=== PATIENT | female | born 1980 | race Caucasian/White ===

== ENCOUNTER 2016-05-29 13:30 | Emergency (ER) | payer SELFPAY ==
--- NOTE | 2016-05-29 14:50 | DIAGNOSTIC IMAGING REPORT ---
PROCEDURE: XR CHEST 1 VIEW INDICATION: SHORTNESS OF BREATH TECHNIQUE: Portable AP view 01:45 p.m. COMPARISON: Chest 02/14/2015 and 12/30/2010 FINDINGS: Lungs are clear. Heart and mediastinum are normal. Thorax is normal. IMPRESSION: 1. Negative chest.
--- NOTE | 2016-05-29 16:55 | ED ORDER SUMMARY ---
..... Patient: KATE TANNER OrderSheet [facility] VisitID: [id number] [place] [address] 36y, F Registration Date/Time: 05/29/2016 ORDER SHEET Weight: 74.8 kg (stated) Allergies: Ibuprofen GENERAL ORDERS: Chest 1V Urgent (13:37 05/29/2016 Nikkie Sena) (Ack 13:40 Pedro) (13:55 Pedro) MEDICATION ORDERS: Albuterol Neb Tx 3 unit doses (NOW) (13:38 05/29/2016 Nikkie Sena) (13:49 KWilliams R.N.) IV FLUIDS: IV NS : initial bolus none -, then 1000 mL/hr for X1 (NOW) (13:36 05/29/2016 Nikkie Sena) (13:49 KWilliams R.N.) Solu-MEDROL IV 125 mg (NOW) (13:36 05/29/2016 Nikkie Sena) (13:50 KWilliams R.N.) Magnesium Sulfate IV 2 gm/50mL (HIGH ALERT MEDICATION, NOW) (14:05 05/29/2016 Nikkie Sena) (14:10 KWilliams R.N.) ORDER SHEET NOTES: This document has not been locked and should not be saved in the medical record.
--- NOTE | 2016-05-29 16:55 | ED CLINICAL REPORT ---
Clinical Report - Physicians/Mid Levels [facility] [address] [place] [address] 05/29/2016 13:30 Patient: KATE TANNER *This is a preliminary document and is subject to change Time Seen: 13:36; initial patient contact. Arrived- By private vehicle. Historian- patient. HISTORY OF PRESENT ILLNESS Chief Complaint: DYSPNEA, WHEEZING and HISTORY OF ASTHMA. This started today and is still present and worsening. It was gradual in onset and has been constant. The dyspnea is described as severe. She has had dyspnea at rest. The patient has had a cough. No sputum production, orthopnea or chest pain or discomfort. See nurses notes for current asthma threapy. Asthma triggers: unknown. Takes asthma medications. Similar symptoms previously: Many times. Recent medical care: Not recently seen/assessed. REVIEW OF SYSTEMS No nasal discharge, sinus drainage, fever, chills or palpitations. No calf pain, nausea, pedal edema or vomiting. All systems otherwise negative, except as recorded above. PAST HISTORY Asthma. SOCIAL HISTORY Never smoker. ADDITIONAL NOTES The nursing notes have been reviewed with agreement regarding the chief complaint, PMH and patient medications and allergies. PHYSICAL EXAM Vital Signs: 05/29/2016 13:23 BP: 195/122. HR: 164. RR: 35. O2 saturation: 89%. Have been reviewed. Hypertensive. Tachycardic. Tachypneic. Temperature normal. Oxygen saturation low. Appearance: Anxious. Patient in severe distress. Eyes: Eyes normal inspection. ENT: Pharynx normal. Neck: No JVD. CVS: Tachycardia. Heart sounds normal. Rhythm normal. Respiratory: Severe respiratory distress with accessory muscle use, retractions, anxiety, diaphoresis, tachypnea and hyperventilation. Unable to speak. Abdomen: Soft and nontender. Skin: No rash. Diaphoresis. Extremities: No calf tenderness. No lower extremity edema. Neuro: Oriented X 3. LABS, X-RAYS, AND EKG Chest X-ray: No acute disease. Normal lung markings present. Normal heart size. No infiltrate. Views: AP. The X-rays were independently viewed by me and interpreted contemporaneously by me. A comparison with prior films reveals that the findings are unchanged. Interpretation time: 16:17. Russel Miller Dr.
--- NOTE | 2016-05-29 16:55 | ED NURSING NOTES ---
Clinical Report - Nurses [facility] [address] [place] [address] 05/29/2016 13:30 Patient: KATE TANNER TRIAGE Triage time 1323. Acuity: LEVEL 2. Chief Complaint: "ASTHMA ATTACK". 13:23 05/29/16. Alert. --13:39 Dipika Ortega R.N. 13:23 05/29/16. BP: 195/122. HR: 164. RR: 35. O2 saturation: 89%. --13:39 Dipika Ortega R.N. Weight: 74.8 kg stated. Height/Length: 63 inches Per Patient. BMI: 29.2. --13:36 Dipika Ortega R.N. Medications ProAir HFA Inhalation. --13:40 Dipika Ortega R.N. Allergies Ibuprofen. --13:39 Dipika Ortega R.N. History Arrived by private vehicle, and accompanied by (sig other). Primary physician (unknown). ( Pt taken from lobby to room two prior to registration. Not speaking due to severity of shortness of breath. MD met at bedside upon arrival to room. Intibated approx 1 year ago for asthma exacerbation.). Onset. (unknown). --13:39 Dipika Ortega R.N. PROBLEMS: Asthma. --13:40 Dipika Ortega R.N. Interventions ID band on patient. To treatment room. --13:39 Dipika Ortega R.N. PHYSICAL ASSESSMENT 13:23. To room via wheelchair. GENERAL / NEURO / PSYCH: Appears anxious and in distress. RESPIRATORY: Severe respiratory distress. She is unable to speak. CVS: Cardiac rhythm: sinus tachycardia. SKIN: Skin is diaphoretic. --13:40 Dipika Ortega R.N. NURSING PROGRESS NOTES The plan of care for this patient has been created. Oxygen administered at 7 liters (oximask with neb tx). marketing support coordinator, pulse oximeter and NIBP monitor placed on patient. Patient gowned. Head of bed elevated. Bed placed in lowest position. Brakes of bed on. --13:41 Dipika Ortega R.N. 13:41 05/29/16. BP: 166/112. HR: 160. RR: 21. O2 saturation: 100%. --13:41 Dipika Ortega R.N. Overall patient status- she states feels the same. --13:41 Dipika Ortega R.N. ( RSI kit placed at bedside). --13:41 Dipika Ortega R.N. 13:24 05/29/2016 Albuterol Neb TX Nebulizer 3 unit dose given. Given by the respiratory therapist. Allergies verified and confirmed 5 rights. --13:49 Dipika Ortega R.N. 13:26 05/29/2016 Site #1 started via IV in the right antecubital space with an 18g angiocath, with aseptic technique and good blood return; one attempt. Blood drawn: rainbow set. Labeled in the presence of the patient and sent to the lab. Saline lock flushed with 10 mL saline. --13:49 Dipika Ortega R.N. 13:27 05/29/2016 SOLU-MEDROL (MethylPREDNISolone Sodium Succ) IVP 125 mg given over 2 minute(s) via site #1. Allergies verified and confirmed 5 rights. IV patency established. IV site checked: no pain, redness, or swelling. IV flushed thoroughly pre- and post-medication administration. IVP given by RN. --13:50 Dipika Ortega R.N. 13:44 05/29/2016 Started bag #1 1000 mL IV Fluids IV NS (Saline); at 999 mL/hr over 1 hour(s) via site #1. Allergies verified and confirmed 5 rights. IV patency established. IV site checked: no pain, redness, or swelling. IV flushed thoroughly pre- and post-medication administration. Completed per protocol. --13:49 Dipika Ortega R.N. 13:50 05/29/16. BP: 160/124. HR: 163. O2 saturation: 100% on face mask at 7 liters/minute. --13:51 Dipika Ortega R.N. Cardiac rhythm: sinus tachycardia. --13:51 Dipika Ortega R.N. Overall patient status is improved- she states feels better. RESPIRATORY: Moderate respiratory distress present with accessory muscle use and hyperventilation. --13:52 Dipika Ortega R.N. 14:02 05/29/16. BP: 149/92. HR: 152. RR: 23. O2 saturation: 98%. --14:03 Dipika Ortega R.N. Cardiac rhythm: sinus tachycardia. --14:03 Dipika Ortega R.N. Cardiac rhythm: sinus tachycardia. --14:09 Dipika Ortega R.N. 14:09 05/29/16. BP: 136/82. HR: 150. RR: 22. O2 saturation: 97%. --14:09 Dipika Ortega R.N. 14:05/29/2016 Started 2 gm of Magnesium Sulfate (Magnesium Sulfate in D5W) Drip IV in bag #1 50 mL; at 25 mL/hr over 2 hour(s) via site #1 via IV pump. Allergies verified and confirmed 5 rights. IV patency established. IV site checked: no pain, redness, or swelling. IV flushed thoroughly pre- and post-medication administration. Completed per protocol. --14:10 Dipika Ortega R.N. Cardiac rhythm: sinus tachycardia. --14:48 Dipika Ortega R.N. 14:48 05/29/16. BP: 134/76. HR: 139. RR: 19. O2 saturation: 96%. --14:48 Dipika Ortega R.N. 15:53 05/29/16. BP: 117/76. HR: 128. RR: 19. O2 saturation: 96% on nasal cannula at 3 liters/minute. --15:54 Dipika Ortega R.N. Cardiac rhythm: sinus tachycardia. --15:54 Dipika Ortega R.N. DISPOSITION / DISCHARGE 17:37 05/29/16. Departure time: 1731. ( aware of discharge vs). Discharge instructions provided and reviewed with the patient and spouse and the patient left prior to discharge education being provided. Reviewed medication(s) side effects, precautions, dosing and course information. Prescription(s) given to the patient. Patient and spouse verbalized understanding. Written instructions provided in Armenian and Maldivian. The patient was discharged by the physician. She was discharged home and accompanied by spouse. She left the Emergency Department ambulatory and via private vehicle. Spouse driving. --17:37 Dipika Ortega R.N. 17:33 05/29/16. BP: 137/78. HR: 123. RR: 13. O2 saturation: 95% on room air. Temp: 98.1 F (oral). Pain level now 0/10. --17:37 Dipika Ortega R.N. Locked/Released at 06/14/2016 8:41 by Alice Gregg R.N.
--- NOTE | 2016-05-29 16:55 | ED CLINICAL REPORT ---
Clinical Report - Physicians/Mid Levels [facility] [address] [place] [address] 05/29/2016 13:30 Patient: KATE TANNER *This is a preliminary document and is subject to change Time Seen: 13:36; initial patient contact. Arrived- By private vehicle. Historian- patient. HISTORY OF PRESENT ILLNESS Chief Complaint: DYSPNEA, WHEEZING and HISTORY OF ASTHMA. This started today and is still present and worsening. It was gradual in onset and has been constant. The dyspnea is described as severe. She has had dyspnea at rest. The patient has had a cough. No sputum production, orthopnea or chest pain or discomfort. See nurses notes for current asthma threapy. Asthma triggers: unknown. Takes asthma medications. Similar symptoms previously: Many times. Recent medical care: Not recently seen/assessed. REVIEW OF SYSTEMS No nasal discharge, sinus drainage, fever, chills or palpitations. No calf pain, nausea, pedal edema or vomiting. All systems otherwise negative, except as recorded above. PAST HISTORY Asthma. SOCIAL HISTORY Never smoker. ADDITIONAL NOTES The nursing notes have been reviewed with agreement regarding the chief complaint, PMH and patient medications and allergies. PHYSICAL EXAM Vital Signs: 05/29/2016 13:23 BP: 195/122. HR: 164. RR: 35. O2 saturation: 89%. Have been reviewed. Hypertensive. Tachycardic. Tachypneic. Temperature normal. Oxygen saturation low. Appearance: Anxious. Patient in severe distress. Eyes: Eyes normal inspection. ENT: Pharynx normal. Neck: No JVD. CVS: Tachycardia. Heart sounds normal. Rhythm normal. Respiratory: Severe respiratory distress with accessory muscle use, retractions, anxiety, diaphoresis, tachypnea and hyperventilation. Unable to speak. Abdomen: Soft and nontender. Skin: No rash. Diaphoresis. Extremities: No calf tenderness. No lower extremity edema. Neuro: Oriented X 3. LABS, X-RAYS, AND EKG Chest X-ray: No acute disease. Normal lung markings present. Normal heart size. No infiltrate. Views: AP. The X-rays were independently viewed by me and interpreted contemporaneously by me. A comparison with prior films reveals that the findings are unchanged. Interpretation time: 16:17. Russel Miller Dr.
--- NOTE | 2016-05-29 16:55 | ED ORDER SUMMARY ---
..... Patient: KATE TANNER OrderSheet [facility] VisitID: [id number] [place] [address] 36y, F Registration Date/Time: 05/29/2016 ORDER SHEET Weight: 74.8 kg (stated) Allergies: Ibuprofen GENERAL ORDERS: Chest 1V Urgent (13:37 05/29/2016 Nikkie Sena) (Ack 13:40 Pedro) (13:55 Pedro) MEDICATION ORDERS: Albuterol Neb Tx 3 unit doses (NOW) (13:38 05/29/2016 Nikkie Sena) (13:49 KWilliams R.N.) IV FLUIDS: IV NS : initial bolus none -, then 1000 mL/hr for X1 (NOW) (13:36 05/29/2016 Nikkie Sena) (13:49 KWilliams R.N.) Solu-MEDROL IV 125 mg (NOW) (13:36 05/29/2016 Nikkie Sena) (13:50 KWilliams R.N.) Magnesium Sulfate IV 2 gm/50mL (HIGH ALERT MEDICATION, NOW) (14:05 05/29/2016 Nikkie Sena) (14:10 KWilliams R.N.) ORDER SHEET NOTES: This document has not been locked and should not be saved in the medical record.
--- NOTE | 2016-06-14 08:41 | ED MED RECONCILIATION SUMMARY ---
Patient: KATE TANNER Medication Reconciliation Report [facility] VisitID: [id number] [address] [place] [address] 36y, F Registration Date/Time: 05/29/2016 Weight: 74.8 kg Height/Length: 63 in. BMI: 29.2 ALLERGIES: Ibuprofen The patient's Home Medications are listed below: CONTINUE TAKING THE FOLLOWING MEDICATIONS: ProAir HFA Inhalation The source(s) of the original Home Medication information: Not obtained. The following Medications were given to the patient in the Emergency Department: IV NS IV Fluids bolus 0, then 999 mL/hr, administered: 05/29/2016 1:44:00 PM Albuterol [Neb Tx] Neb TX 3 unit dose, administered: 05/29/2016 1:24:00 PM SOLU-MEDROL [IVP] IVP 125 mg, administered: 05/29/2016 1:27:00 PM Magnesium Sulfate [IV Drip] Drip IV bolus 0, then 2 gm 25 mL/hr, administered: 05/29/2016 2:05:00 PM The following Medications were prescribed to the patient: Prednisone 20 mg: take 2 orally every day for 4 days. Dispense sufficient quantity.(Start on 05/30/16) -- Russel Miller Dr.
--- NOTE | 2016-06-14 08:41 | ED MAR SUMMARY ---
..... Medication Administration Record [facility] [address] [place] [address] Patient: KATE TANNER Visit ID: [id number] 36y, F Weight: 74.8 kg Height/Length: 63 in BMI: 29.2 ALLERGIES: Ibuprofen Given 13:24 05/29/2016 Dpiika Ortega R.N. Medication Administered: ALBUTEROL [NEB TX], Dose: 3 unit dose Nebulizer Neb TX. Medication Ordered: Albuterol Neb Tx 3 unit doses (NOW). Given 13:27 05/29/2016 Dipika Ortega R.N. Medication Administered: SOLU-MEDROL [IVP] (METHYLPREDNISOLONE SODIUM SUCC), Dose: 125 mg IVP over 2 minute(s), Site: #1 right AC. Medication Ordered: Solu-MEDROL IV 125 mg (NOW). Start 13:44 05/29/2016 Dipika Ortega R.N. Medication Administered: IV NS (SALINE), Dose: IV Fluids over 1 hour(s), Rate: 999 mL/hr, Dispensed: 1000 mL bag, Site: #1 right AC. Medication Ordered: IV NS : initial bolus none -, then 1000 mL/hr for X1 (NOW). Start 14:05 05/29/2016 Dipika Ortega R.N. Medication Administered: MAGNESIUM SULFATE [IV DRIP] (MAGNESIUM SULFATE IN D5W), Dose: 2 gm Drip IV over 2 hour(s), Rate: 25 mL/hr, Dispensed: 50 mL bag, Site: #1 right AC. Medication Ordered: Magnesium Sulfate IV 2 gm/50mL (HIGH ALERT MEDICATION, NOW).
--- NOTE | 2016-06-14 08:41 | ED MED RECONCILIATION SUMMARY ---
Patient: KATE TANNER Medication Reconciliation Report [facility] VisitID: [id number] [address] [place] [address] 36y, F Registration Date/Time: 05/29/2016 Weight: 74.8 kg Height/Length: 63 in. BMI: 29.2 ALLERGIES: Ibuprofen The patient's Home Medications are listed below: CONTINUE TAKING THE FOLLOWING MEDICATIONS: ProAir HFA Inhalation The source(s) of the original Home Medication information: Not obtained. The following Medications were given to the patient in the Emergency Department: IV NS IV Fluids bolus 0, then 999 mL/hr, administered: 05/29/2016 1:44:00 PM Albuterol [Neb Tx] Neb TX 3 unit dose, administered: 05/29/2016 1:24:00 PM SOLU-MEDROL [IVP] IVP 125 mg, administered: 05/29/2016 1:27:00 PM Magnesium Sulfate [IV Drip] Drip IV bolus 0, then 2 gm 25 mL/hr, administered: 05/29/2016 2:05:00 PM The following Medications were prescribed to the patient: Prednisone 20 mg: take 2 orally every day for 4 days. Dispense sufficient quantity.(Start on 05/30/16) -- Russel Miller Dr.
--- NOTE | 2016-06-14 08:41 | ED MAR SUMMARY ---
..... Medication Administration Record [facility] [address] [place] [address] Patient: KATE TANNER Visit ID: [id number] 36y, F Weight: 74.8 kg Height/Length: 63 in BMI: 29.2 ALLERGIES: Ibuprofen Given 13:24 05/29/2016 Dipika Ortega R.N. Medication Administered: ALBUTEROL [NEB TX], Dose: 3 unit dose Nebulizer Neb TX. Medication Ordered: Albuterol Neb Tx 3 unit doses (NOW). Given 13:27 05/29/2016 Dipika Ortega R.N. Medication Administered: SOLU-MEDROL [IVP] (METHYLPREDNISOLONE SODIUM SUCC), Dose: 125 mg IVP over 2 minute(s), Site: #1 right AC. Medication Ordered: Solu-MEDROL IV 125 mg (NOW). Start 13:44 05/29/2016 Dipika Ortega R.N. Medication Administered: IV NS (SALINE), Dose: IV Fluids over 1 hour(s), Rate: 999 mL/hr, Dispensed: 1000 mL bag, Site: #1 right AC. Medication Ordered: IV NS : initial bolus none -, then 1000 mL/hr for X1 (NOW). Start 14:05 05/29/2016 Dipika Ortega R.N. Medication Administered: MAGNESIUM SULFATE [IV DRIP] (MAGNESIUM SULFATE IN D5W), Dose: 2 gm Drip IV over 2 hour(s), Rate: 25 mL/hr, Dispensed: 50 mL bag, Site: #1 right AC. Medication Ordered: Magnesium Sulfate IV 2 gm/50mL (HIGH ALERT MEDICATION, NOW).
--- NOTE | 2016-06-14 08:41 | ED DISCHARGE INSTRUCTIONS ---
Patient: KATE TANNER General Instructions [facility] VisitID: [id number] [place] [address] 36y, F Registration Date/Time: 05/29/2016 Moderate persistent asthma with an acute exacerbation, status asthmaticus and hypoxemia. No pneumonia or acute respiratory failure. INSTRUCTIONS Your Current Medications: CONTINUE TAKING THE FOLLOWING MEDICATIONS: ProAir HFA Inhalation. Prescription Medications: Prednisone 20 mg: take 2 orally every day for 4 days. Dispense sufficient quantity. (Start on 05/30/16) Follow-up: Follow up with your doctor in two days even if well. Call for an appointment. Screening today revealed the patient's blood pressure to be in the normal range. ADDITIONAL INFORMATION Asthma [Adult] Asthma is a disease where the small air passages within the lung go into spasm and restrict the flow of air. Inflammation and swelling of the airways cause further restriction. During an acute asthma attack, these factors cause difficulty breathing, wheezing, cough and chest tightness. An asthma attack can be triggered by many things. Common triggers include the common cold, bronchitis, pneumonia, irritants such as smoke or pullutants in the air, emotional upset and heavy exercise. Inmany adults with asthma, allergies todust, mold, pollen and animal dander can cause an asthma attack. Skipping doses of daily asthma medicine can also bring on an asthma attack. Asthma can be controlled with proper medicines and decreased exposure to known allergens. Home Care: Take prescribed medicine exactly at the times advised. If you have a hand-held inhaler or aerosol breathing medicine, do not use it more than once every four hours, unless told to do so. (If you need this medicine more than every four hours, you may need to return to the Emergency Room.) If prescribed an antibiotic or prednisone, take all of the medicine even if you are feeling better after a few days. Do not smoke. Avoid being exposed to the smoke of others. Some persons with asthma have worsening of their symptoms when they take aspirin and non-steroidal medicines like ibuprofen (Motrin, Advil) and naproxen (Aleve, Naprosyn). Talk to your doctor if you think this may apply to you. Acetaminophen (Tylenol)should be safe to use. Follow Up with your doctor, or as advised by our staff. Always bring all of your current medicines with you for your doctor to see. If you do not already have one, talk to your doctor about developing a personalized "Asthma Action Plan." [NOTE: A pneumococcal vaccine and yearly flu shot (every fall) are recommended. Ask your doctor about this.] Get Prompt Medical Attention if any of the following occur: Increased wheezing or shortness of breath Need to use your inhalers more often than usual without relief Fever of 100.4F (38C) or higher, or as directed by your healthcare provider Coughing up lots of dark-colored or bloody sputum (mucus) Chest pain with each breath You do not start to improve within 24 hours Call 911 If Any Of The Following Occur : Trouble walking or talking because of shortness of breath If you use a peak flow meter andyou are still in the red zone (less than 50 percent) 15 minutes after using inhaler medication Lips or fingernails turning vazquez or blue You have been given the following additional information: Asthma, Acute (Adult) (Electronically signed by Russel Miller Dr. 05/29/2016 17:02)
== END 2016-05-29 17:31 | disposition home or self-care (01) ==
LOC: ED SRH 13:30
DX: J45.42 Moderate persistent asthma with status asthmaticus (principal); R09.02 Hypoxemia

== ENCOUNTER 2016-09-22 01:45 | Inpatient (IN) | payer SELFPAY ==
[~2016-09-22] VITALS: Ht 152.4 cm; Wt 70.9 kg
--- NOTE | 2016-09-22 03:50 | ED ORDER SUMMARY ---
..... Patient: KATE TANNER OrderSheet [facility] VisitID: [id number] [place] [address] 36y, F Registration Date/Time: 09/22/2016 ORDER SHEET Weight: 72.5 kg (stated) Allergies: Ibuprofen GENERAL ORDERS: Chest 1V Urgent (02:09/22/2016 Kamilla IVERSON) (Ack 2:28 CHagerty ER Ux Design Manager) (3:01 Kinza) Postal Support Employee (Continuous) (02:09/22/2016 Kamilla IVERSON) (Ack 2:31 JQuivey R.N.) (2:44 CFalkner R.N.) CBC w Diff Urgent (02:09/22/2016 Kamilla IVERSON) (Ack 2:28 Valeria ER Ux Design Manager) (2:41 CFalkner R.N.) BMP Urgent (02:09/22/2016 Kamilla IVERSON) (Ack 2:28 Valeria ER Ux Design Manager) (2:41 CFalkner R.N.) (Cancelled: Other3:01 Kamilla IVERSON) Oxygen (2 L/min) (NC) (02:25 09/22/2016 Kamilla IVERSON) (2:31 JQuivey R.N.) CMP Urgent (03:02 09/22/2016 Kamilla IVERSON) (Ack 3:04 CHagmarija ER Ux Design Manager) (3:05 CHagerty ER Ux Design Manager) Amylase Urgent (03:02 09/22/2016 Kamilla IVERSON) (Ack 3:04 CHagmarija ER Ux Design Manager) (3:05 CHagerty ER Ux Design Manager) Lipase Urgent (03:02 09/22/2016 Kamilla IVERSON) (Ack 3:04 CHagerty ER Ux Design Manager) (3:05 CHagerty ER Ux Design Manager) UA-Culture if indicated Urgent (03:02 09/22/2016 Kamilla IVERSON) (Ack 3:04 CHagmarija ER Ux Design Manager) (3:34 JQuivey R.N.) Urine Urgent (03:02 09/22/2016 Kamilla IVERSON) (Ack 3:04 CHagmarija ER Ux Design Manager) (3:34 JQuivey R.N.) Acetone, Serum Urgent (03:02 09/22/2016 Kamilla IVERSON) (Ack 3:04 CHagerty ER Ux Design Manager) (3:05 CHagerty ER Ux Design Manager) ABG (G) Urgent (03:02 09/22/2016 Kamilla IVERSON) (Ack 3:04 CHagmarija ER Ux Design Manager) (3:44 JQuivey R.N.) POC Glucose (Q 30 minutes) (03:14 09/22/2016 Kamilla IVERSON) (Ack 3:44 JQuivey R.N.) MEDICATION ORDERS: DuoNeb Neb Tx 1 unit dose (NOW) (01:55 09/22/2016 JQuivey R.N. per protocol) (1:56 JQuivey R.N.) Albuterol Neb Tx 1 unit dose (NOW) (02:24 09/22/2016 Kamilla IVERSON) (Ack 2:28 CHagerty ER Ux Design Manager) (2:32 JQuivey R.N.) IV FLUIDS: IV Saline Lock (02:25 09/22/2016 Kamilla IVERSON) (2:31 JQuivey R.N.) IV NS : initial bolus 1000 mL (1000 mL/hr), then 125 mL/hr for 4h (NOW); Urgent (03:02 09/22/2016 Kamilla IVERSON) (Ack 3:19 JQuivey R.N.) (3:34 JQuivey R.N.) Insulin Reg IV 5 units (HIGH ALERT MEDICATION, NOW) (03:14 09/22/2016 Kamilla IVERSON) (Ack 3:19 JQuivey R.N.) (3:34 JQuivey R.N.) Insulin Reg IV 5 units (NOW) (04:15 09/22/2016 JQuivey R.N. verbal order read back to Kamilla IVERSON) (Ack 4:16 JQuivey R.N.) (4:21 JQuivey R.N.) ORDER SHEET NOTES: [Electronically signed by Alok Alfaro R.N. (06:02 09/22/2016)] [Electronically signed by Fermín Ruiz MD (11:25 09/24/2016)] [Electronically locked/signed by Alok Alfaro R.N. (06:02 09/22/2016)]
--- NOTE | 2016-09-22 03:50 | ED CLINICAL REPORT ---
Clinical Report - Physicians/Mid Levels [facility] [address] [place] [address] 09/22/2016 1:45 Patient: KATE TANNER Time Seen: 01:54. Arrived- By ambulance. Historian- patient and EMS personnel. HISTORY OF PRESENT ILLNESS Chief Complaint: DYSPNEA and HISTORY OF ASTHMA. This started yesterday and is still present. It was abrupt in onset and has been constant. The dyspnea is severe. The patient has had wheezing and dyspnea on exertion. No calf pain or foot swelling. Similar symptoms previously: Several times. REVIEW OF SYSTEMS No chills, fever, sweats, calf pain or pedal edema. No palpitations, abdominal pain, constipation, diarrhea or nausea. No vomiting or urinary problems. She has had diabetic symptoms, including polydipsia and polyuria. No polyphagia, weight loss or fatigue. All systems otherwise negative, except as recorded above. PAST HISTORY Problems: Asthma. Diabetes Mellitus. Additional Surgeries: Sinus Surgery. Medications: MetFORMIN HCl Oral (Tablet 1000 mg) 1 tablet, 2x a day. Albuterol Sulfate Inhalation 2 puffs, PRN. Allergies: Ibuprofen. SOCIAL HISTORY Never smoker. No alcohol use or drug use. ADDITIONAL NOTES The nursing notes have been reviewed. PHYSICAL EXAM Vital Signs: 09/22/2016 01:46 BP: 141/62. HR: 144. RR: 22. O2 saturation: 99%. Pain level now: 0/10. Have been reviewed. Appearance: Alert. No acute distress. Eyes: Pupils equal, round and reactive to light. ENT: Pharynx normal. Neck: Normal inspection. No jugular venous distention. Neck supple. CVS: Normal heart rate and rhythm. Heart sounds normal. Respiratory: Retractions. Accessory muscle use. Prolonged expirations. Decreased air movement. Wheezing present. No rales or rhonchi. Abdomen: Soft and nontender. No organomegaly. Back: Normal inspection. No CVA tenderness. Skin: Skin warm and dry. Normal skin color. Normal skin turgor. Extremities: Extremities exhibit normal ROM. No calf tenderness. No lower extremity edema. Neuro: No motor deficit. No sensory deficit. LABS, X-RAYS, AND EKG Chest X-ray: No infiltrate. The X-rays were independently viewed by me. Laboratory Tests: UA-Culture if indicated: (PALAK: 09/22/2016 03:28) ( [facility] 09/22/2016 03:43) IP Test Result Flag Units (Reference) URINE COLOR YELLOW URINE APPEARANCE CLEAR URINE GLUCOSE 3+ (NEGATIVE) URINE BILIRUBIN NEGATIVE (NEGATIVE) URINE KETONE 1+ (NEGATIVE) URINE SPECIFIC GRAVITY <= 1.005 L (1.010-1.030) URINE PH 5.5 (5.0-8.0) URINE PROTEIN NEGATIVE (NEGATIVE) URINE UROBILINOGEN 0.2 EU/dL (0.2-1.0) URINE NITRITE NEGATIVE (NEGATIVE) URINE BLOOD 2+ (NEGATIVE) URINE LEUK ESTERASE NEGATIVE (NEGATIVE) Urine: (PALAK: 09/22/2016 03:28) ( [facility] 09/22/2016 03:43) Final results Test Result Flag Units (Reference) URINE NEGATIVE CBC w Diff: (PALAK: 09/22/2016 02:35) ( [facility] 09/22/2016 02:45) Final results Test Result Flag Units (Reference) WHITE BLOOD COUNT 9.2 K/uL (4.5-11.5) RED BLOOD COUNT 4.62 M/uL (4.00-5.20) HEMOGLOBIN 9.9 L gm/dL (12.0-16.0) HEMATOCRIT 31.7 L % (36.0-46.0) MEAN CELL VOLUME 69 L fL (80-100) MEAN CORPUSCULAR HGB 22 L pg (26-34) MEAN CORPUSCULAR HGB CONC 31 g/dL (31-37) RED CELL DISTRIBUTION WIDTH 14.5 % (11.6-14.8) PLATELET COUNT 218 K/uL (150-400) NEUTROPHIL % 76.7 H % (50-75) LYMPH % 16.8 L % (25-40) MONO % 4.6 % (3-14) EOSINOPHIL % 1.7 % (0-4) BASOPHIL % 0.2 % (0-2) CMP: (PALAK: 09/22/2016 02:35) ( MsgRcvd 09/22/2016 03:32) Final results Test Result Flag Units (Reference) GLUCOSE 583 *H mg/dL (70-110) CRITICAL RESULTS CALLEDCalled to DR. RUIZ 09/22/16 WITH CHEM 7Were 2 patient identifiers used? YWas the result read back? Y BUN 16 mg/dL (7-18) CREATININE 0.8 mg/dL (0.6-1.3) Estimated GFR >60 mL/min Estimated GFR- >60 mL/min Note: Persistent reduction over 3 months in eGFR<60 mL/min/1.73 m2 defines CKD. Patients with eGFR values>=60 mL/min/1.73 m2 may also have CKD if evidence ofpersistent proteinuria. Additional information may be foundat www.kidney.org. SODIUM 134 L mmol/L (136-145) POTASSIUM 3.3 L mmol/L (3.5-5.1) CHLORIDE 97 L mmol/L (98-107) CARBON DIOXIDE 22 mmol/L (21-32) CALCIUM 9.0 mg/dL (8.5-10.1) TOTAL PROTEIN 7.3 g/dL (6.4-8.2) ALBUMIN 3.4 g/dL (3.3-5.0) BILIRUBIN, TOTAL 0.2 mg/dL (0.0-1.0) ALKALINE PHOSPHATASE 145 H U/L (46-116) AST (SGOT) 11 L U/L (15-37) ALT (SGPT) 19 U/L (12-78) LIPASE 192 U/L (73-393) AMYLASE 55 U/L (25-115) ACETONE, SERUM QUALITATIVE POSITIVE (NEGATIVE) WEAK POSITIVE REACTION BMP: (PALAK: 09/22/2016 02:35) ( MsgRcvd 09/22/2016 03:02) Final results Test Result Flag Units (Reference) GLUCOSE 593 *H mg/dL (70-110) CRITICAL RESULTS CALLEDCalled to DR. RUIZ 09/22/16 0301Were 2 patient identifiers used? YWas the result read back? Y BUN 16 mg/dL (7-18) CREATININE 0.8 mg/dL (0.6-1.3) Estimated GFR >60 mL/min Estimated GFR- >60 mL/min Note: Persistent reduction over 3 months in eGFR<60 mL/min/1.73 m2 defines CKD. Patients with eGFR values>=60 mL/min/1.73 m2 may also have CKD if evidence ofpersistent proteinuria. Additional information may be foundat www.kidney.org. SODIUM 134 L mmol/L (136-145) POTASSIUM 3.2 L mmol/L (3.5-5.1) CHLORIDE 98 mmol/L (98-107) CARBON DIOXIDE 23 mmol/L (21-32) CALCIUM 8.9 mg/dL (8.5-10.1) ABG: (PALAK: 09/22/2016 03:02) ( MsgRcvd 09/22/2016 03:16) Final results Test Result Flag Units (Reference) FIO2 36 % (20-101) ABG MODE OF DELIVERY NC MODIFIED FELICITY TEST POSITIVE? YES LITERS PER MIN. 4 L/MIN (0-20) ABG PATIENT RESP RATE 20 /MIN ARTERIAL BLOOD GAS SITE LR ARTERIAL BLOOD GAS pH 7.42 (7.35-7.45) ABG PCO2 35.7 mmHg (35-45) ABG PO2 86.5 mmHg (80.0-100.0) ABG BASE EXCESS -1.3 H mmol/L (-6.0--6.0) ABG HCO3 23.0 mmol/L (20.0-26.0) ABG TCO2 24.1 mmol/L (24.0-30.0) ABG KcGbD6x 130.3 H mmHg (7.0-14.0) *NOTE: Normal rangeis based on aFIO2 of 21% ABG SAT O2 97.5 % (95.1-100.0) ABG TOTAL HEMOGLOBIN 10.0 L g/dL (12.0-16.0) ABG O2 HEMOGLOBIN 95.9 % (95.0-100.0) ABG CARBOXYHEMOGLOBIN 1.5 % (0.5-1.5) ABG METHEMOGLOBIN 0.1 L % (0.4-1.5) ABG RHEMOGLOBIN 2.5 % . PROGRESS AND PROCEDURES Discussed case with hospitalist, (Delonte). Reviewed test results and need for additional work-up. Agreed upon treatment plan, need for patient follow-up and decision to admit. Patient/family counseled. Old medical records reviewed. Disposition: Admitted. CLINICAL IMPRESSION Asthma. Diabetes with hyperglycemia. Hypoxia. ketotic hyperosmolar state. (Electronically signed by Fermín Ruiz MD 09/24/2016 11:25)
--- NOTE | 2016-09-22 03:50 | ED NURSING NOTES ---
Clinical Report - Nurses [facility] [place] [address] 09/22/2016 1:45 Patient: KATE TANNER TRIAGE Triage time 01:42. Acuity: LEVEL 2. Chief Complaint: SHORTNESS OF BREATH, DIFFICULTY BREATHING and "ASTHMA ATTACK". 01:53. Alert. SEPSIS SCREEN: Sepsis Screen. Negative (no infection suspected/documented). --01:53 Alok Alfaro R.N. 01:46 09/22/16. BP: 141/62. HR: 144. RR: 22. O2 saturation: 99% on non-rebreather. Temp: deferred. Pain level now: 0/10. --01:53 Alok Alfaro R.N. Weight: 72.5 kg stated. Height/Length: 63 inches Per Patient. BMI: 28.3. --01:52 Alok Alfaro R.N. Medications Albuterol Sulfate Inhalation 2 puffs, PRN. --01:51 Alok Alfaro R.N. MetFORMIN HCl Oral (Tablet 1000 mg) 1 tablet, 2x a day. --01:51 Alok Alfaro R.N. Allergies Ibuprofen. --01:51 Alok Alfaro R.N. Medication/allergy information source: the patient and patient's family. --01:53 Alok Alfaro R.N. History Arrived by EMS. Historian: EMS and patient. Accompanied by daughter. Primary physician (PERRY). This started last night. Treatment AUTOMOTIVE GLAZIER: EMS treatment AUTOMOTIVE GLAZIER verbally communicated. Oxygen administered by nonrebreather mask. Medications given- (125 mg SOLU-MEDROL). ( [facility] PAST MEDICAL HX: Immunizations: up-to-date. Last normal menstrual period now. SOCIAL HX: Never smoker. No alcohol use or drug use. No infectious disease exposure. ABUSE ASSESSMENT: No report of abuse. FALL RISK ASSESSMENT: Fall risk assessment completed. No fall risk identified. NUTRITIONAL RISK ASSESSMENT: The nutritional risk assessment revealed no deficiencies. FUNCTIONAL ASSESSMENT: Functional assessment: no impairments noted. LEARNING NEEDS ASSESSMENT: The learning needs assessment revealed no barriers. SKIN INTEGRITY ASSESSMENT: Skin integrity risk assessment completed. No skin integrity risk identified. --01:53 Alok Alfaro R.N. PROBLEMS: Asthma. Diabetes Mellitus. --01:52 Alok Alfaro R.N. ADDITIONAL SURGERIES: Sinus Surgery. --01:52 Alok Alfaro R.N. Interventions ID band on patient. To treatment room. --01:53 Alok Alfaro R.N. 01:33 09/22/2016 Site #1 started prior to arrival by EMS via IV in the left antecubital space with an 20g angiocath. --01:49 Alok Alfaro R.N. PHYSICAL ASSESSMENT 01:54. To room via wheelchair. GENERAL / NEURO / PSYCH: Alert. Oriented X 4. HEENT: Mucous membranes are pink. RESPIRATORY: Mild respiratory distress. The patient can speak a few words at a time. Wheezing present; wheezes audible without auscultation. SKIN: Skin is warm and dry. Normal skin turgor. --01:54 Alok Alfaro R.N. NURSING PROGRESS NOTES 01:43. Head of bed elevated. Two patient identifiers checked. Call light placed in reach. Bed placed in lowest position. Brakes of bed on. Patient ready for evaluation- chart flagged. --01:54 Alok Alfaro R.N. 01:44 RT with pt for eval and breathing treatment. --01:55 Alok Alfaro R.N. 01:44 09/22/2016 Duoneb (Ipratropium-Albuterol) Neb TX 1 unit dose given. Given by the respiratory therapist. Allergies verified and confirmed 5 rights. --01:56 Alok Alfaro R.N. 02:15 Following Duo-neb treatment - RT placed oxy-mask on pt. --02:16 Alok Alfaro R.N. 02:32 09/22/2016 Albuterol Neb TX 1 unit dose given. Given by the respiratory therapist. Allergies verified and confirmed 5 rights. --02:32 Alok Alfaro R.N. Patient ID band checked for patient name and birthdate: patient confirmed. Blood samples drawn from the right wrist by nurse per protocol ; labeled in presence of the patient and sent to lab: rainbow set. Two patient identifiers checked. Call light placed in reach. Side rails up x 1. Bed placed in lowest position. Brakes of bed on. --02:45 Suma Ortiz R.N. 02:40 RT placed pt on 02 4 lts NC. --03:33 Alok Alfaro R.N. 03:27 Patient to restroom to collect urine sample. --03:28 Alok Alfaro R.N. 03:29. Patient ID band checked for patient name and birthdate. Clean catch urine collected with return of yellow-colored clear urine; sample sent to lab for urinalysis and HCG. Specimen labeled in the presence of the patient. --03:31 Alok Alfaro R.N. 03:29 09/22/2016 Started bag #1 1000 mL IV Fluids IV NS (Saline); at 1000 mL/hr over 1 hour(s) via site #1 --03:34 Alok Alfaro R.N. 03:32 09/22/2016 Insulin REG IVP 5 unit given over 1 minute(s) via site #1. Allergies verified and confirmed 5 rights. IV patency established. IV site checked: no pain, redness, or swelling. IV flushed thoroughly pre- and post-medication administration (dose verified by Annemarie DEE). --03:34 Alok Alfaro R.N. 03:34 09/22/16. BP: 122/68. HR: 126. RR: 17. O2 saturation: 99% on nasal cannula at 4 liters/minute. --03:35 Alok Alfaro R.N. 03:35. Oxygen decreased to 2 liters. --03:35 Aolk Alfaro R.N. Finger stick glucose: >500; performed by tech; result shown to the ED physician and RN. ( @ 0402). --04:08 Tej Vanegas, MUKUL Tech1 04:21 09/22/2016 Insulin REG IVP 5 unit given over 1 minute(s) via site #1. Allergies verified and confirmed 5 rights. IV patency established. IV site checked: no pain, redness, or swelling. IV flushed thoroughly pre- and post-medication administration. --04:21 Alok Alfaro R.N. 04:37. The patient is sleeping. RESPIRATORY: No respiratory distress. SKIN: Skin is warm and dry. Skin color within normal limits. --04:37 Alok Alfaro R.N. 05:02. Finger stick glucose: 476 mg/dL; performed by tech; result shown to the RN. --05:02 Alok Alfaro R.N. 05:17 Dr. Martel with pt for exam. --05:17 Alok Alfaro R.N. 05:20 09/22/2016 IV Fluids IV NS Bag Change: bag #1 infused. Total amount infused: 1000. STARTED bag #2 at 125 mL/hr. IV patency established. IV site checked: no pain, redness, or swelling. IV flushed thoroughly. --05:21 Alok Alfaro R.N. DISPOSITION / DISCHARGE Condition at departure: improved and stable. FALL RISK ASSESSMENT: Fall risk assessment completed. No fall risk identified. --04:37 Alok Alfaro R.N. 04:36 09/22/16. BP: 124/65. HR: 120. RR: 18. O2 saturation: 96% on nasal cannula at 2 liters/minute. --04:37 Alok Alfaro R.N. 05:11. Report was given via a phone call. Report included patient's care, treatment, medications, reviewed medication reconcilliation, and condition (including any recent changes or anticipated changes). Report was acknowledged. (Wilton VAZQUEZcustomer care representative). --05:11 Alok Alfaro R.N. Admitted to Acute Care. Patient's personal items include, Other belongings; items were placed in belongings bag and transported with the patient. She did not have glasses, contacts, dentures or a hearing aid. --05:16 Alok Alfaro R.N. 05:14 09/22/16. BP: 101/53. HR: 112. RR: 17. O2 saturation: 97% on nasal cannula at 2 liters/minute. Pain level now: 0/10. --05:16 Alok Alfaro R.N. Departure time: 05:54. --05:54 Alok Alfaro R.N. Locked/Released at 09/22/2016 6:02 by Alok Alfaro R.N.
--- NOTE | 2016-09-22 03:50 | ED NURSING NOTES ---
Clinical Report - Nurses [facility] [place] [address] 09/22/2016 1:45 Patient: KATE TANNER TRIAGE Triage time 01:42. Acuity: LEVEL 2. Chief Complaint: SHORTNESS OF BREATH, DIFFICULTY BREATHING and "ASTHMA ATTACK". 01:53. Alert. SEPSIS SCREEN: Sepsis Screen. Negative (no infection suspected/documented). --01:53 lAok Alfaro R.N. 01:46 09/22/16. BP: 141/62. HR: 144. RR: 22. O2 saturation: 99% on non-rebreather. Temp: deferred. Pain level now: 0/10. --01:53 Alok Alfaro R.N. Weight: 72.5 kg stated. Height/Length: 63 inches Per Patient. BMI: 28.3. --01:52 Alok Alfaro R.N. Medications Albuterol Sulfate Inhalation 2 puffs, PRN. --01:51 Alok Alfaro R.N. MetFORMIN HCl Oral (Tablet 1000 mg) 1 tablet, 2x a day. --01:51 Alok Alfaro R.N. Allergies Ibuprofen. --01:51 Alok Alfaro R.N. Medication/allergy information source: the patient and patient's family. --01:53 Alok Alfaro R.N. History Arrived by EMS. Historian: EMS and patient. Accompanied by daughter. Primary physician (PERRY). This started last night. Treatment REPACKER: EMS treatment REPACKER verbally communicated. Oxygen administered by nonrebreather mask. Medications given- (125 mg SOLU-MEDROL). ( [facility] PAST MEDICAL HX: Immunizations: up-to-date. Last normal menstrual period now. SOCIAL HX: Never smoker. No alcohol use or drug use. No infectious disease exposure. ABUSE ASSESSMENT: No report of abuse. FALL RISK ASSESSMENT: Fall risk assessment completed. No fall risk identified. NUTRITIONAL RISK ASSESSMENT: The nutritional risk assessment revealed no deficiencies. FUNCTIONAL ASSESSMENT: Functional assessment: no impairments noted. LEARNING NEEDS ASSESSMENT: The learning needs assessment revealed no barriers. SKIN INTEGRITY ASSESSMENT: Skin integrity risk assessment completed. No skin integrity risk identified. --01:53 Alok Alfaro R.N. PROBLEMS: Asthma. Diabetes Mellitus. --01:52 Alok Alfaro R.N. ADDITIONAL SURGERIES: Sinus Surgery. --01:52 Alok Alfaro R.N. Interventions ID band on patient. To treatment room. --01:53 Alok Alfaro R.N. 01:33 09/22/2016 Site #1 started prior to arrival by EMS via IV in the left antecubital space with an 20g angiocath. --01:49 Alok Alfaro R.N. PHYSICAL ASSESSMENT 01:54. To room via wheelchair. GENERAL / NEURO / PSYCH: Alert. Oriented X 4. HEENT: Mucous membranes are pink. RESPIRATORY: Mild respiratory distress. The patient can speak a few words at a time. Wheezing present; wheezes audible without auscultation. SKIN: Skin is warm and dry. Normal skin turgor. --01:54 Alok Alfaro R.N. NURSING PROGRESS NOTES 01:43. Head of bed elevated. Two patient identifiers checked. Call light placed in reach. Bed placed in lowest position. Brakes of bed on. Patient ready for evaluation- chart flagged. --01:54 Alok Alfaro R.N. 01:44 RT with pt for eval and breathing treatment. --01:55 Alok Alfaro R.N. 01:44 09/22/2016 Duoneb (Ipratropium-Albuterol) Neb TX 1 unit dose given. Given by the respiratory therapist. Allergies verified and confirmed 5 rights. --01:56 Alok Alfaro R.N. 02:15 Following Duo-neb treatment - RT placed oxy-mask on pt. --02:16 Alok Alfaro R.N. 02:32 09/22/2016 Albuterol Neb TX 1 unit dose given. Given by the respiratory therapist. Allergies verified and confirmed 5 rights. --02:32 Alok Alfaro R.N. Patient ID band checked for patient name and birthdate: patient confirmed. Blood samples drawn from the right wrist by nurse per protocol ; labeled in presence of the patient and sent to lab: rainbow set. Two patient identifiers checked. Call light placed in reach. Side rails up x 1. Bed placed in lowest position. Brakes of bed on. --02:45 Suma Ortiz R.N. 02:40 RT placed pt on 02 4 lts NC. --03:33 Alok Alfaro R.N. 03:27 Patient to restroom to collect urine sample. --03:28 Alok Alfaro R.N. 03:29. Patient ID band checked for patient name and birthdate. Clean catch urine collected with return of yellow-colored clear urine; sample sent to lab for urinalysis and HCG. Specimen labeled in the presence of the patient. --03:31 Alok Alfaro R.N. 03:29 09/22/2016 Started bag #1 1000 mL IV Fluids IV NS (Saline); at 1000 mL/hr over 1 hour(s) via site #1 --03:34 Alok Alfaro R.N. 03:32 09/22/2016 Insulin REG IVP 5 unit given over 1 minute(s) via site #1. Allergies verified and confirmed 5 rights. IV patency established. IV site checked: no pain, redness, or swelling. IV flushed thoroughly pre- and post-medication administration (dose verified by Annemarie DEE). --03:34 Alok Alfaro R.N. 03:34 09/22/16. BP: 122/68. HR: 126. RR: 17. O2 saturation: 99% on nasal cannula at 4 liters/minute. --03:35 Alok Alfaro R.N. 03:35. Oxygen decreased to 2 liters. --03:35 Alok Alfaro R.N. Finger stick glucose: >500; performed by tech; result shown to the ED physician and RN. ( @ 0402). --04:08 Tej Vanegas, MUKUL Tech1 04:21 09/22/2016 Insulin REG IVP 5 unit given over 1 minute(s) via site #1. Allergies verified and confirmed 5 rights. IV patency established. IV site checked: no pain, redness, or swelling. IV flushed thoroughly pre- and post-medication administration. --04:21 Alok Alfaro R.N. 04:37. The patient is sleeping. RESPIRATORY: No respiratory distress. SKIN: Skin is warm and dry. Skin color within normal limits. --04:37 Alok Alfaro R.N. 05:02. Finger stick glucose: 476 mg/dL; performed by tech; result shown to the RN. --05:02 Alok Alfaro R.N. 05:17 Dr. Martel with pt for exam. --05:17 Alok Alfaro R.N. 05:20 09/22/2016 IV Fluids IV NS Bag Change: bag #1 infused. Total amount infused: 1000. STARTED bag #2 at 125 mL/hr. IV patency established. IV site checked: no pain, redness, or swelling. IV flushed thoroughly. --05:21 Alok Alfaro R.N. DISPOSITION / DISCHARGE Condition at departure: improved and stable. FALL RISK ASSESSMENT: Fall risk assessment completed. No fall risk identified. --04:37 Alok Alfaro R.N. 04:36 09/22/16. BP: 124/65. HR: 120. RR: 18. O2 saturation: 96% on nasal cannula at 2 liters/minute. --04:37 Alok Alfaro R.N. 05:11. Report was given via a phone call. Report included patient's care, treatment, medications, reviewed medication reconcilliation, and condition (including any recent changes or anticipated changes). Report was acknowledged. (Wilton VAZQUEZcaregiver services home). --05:11 Alok Alfaro R.N. Admitted to Acute Care. Patient's personal items include, Other belongings; items were placed in belongings bag and transported with the patient. She did not have glasses, contacts, dentures or a hearing aid. --05:16 Alok Alfaro R.N. 05:14 09/22/16. BP: 101/53. HR: 112. RR: 17. O2 saturation: 97% on nasal cannula at 2 liters/minute. Pain level now: 0/10. --05:16 Alok Alfaro R.N. Departure time: 05:54. --05:54 Alok Alfaro R.N. Locked/Released at 09/22/2016 6:02 by Alok Alfaro R.N.
--- NOTE | 2016-09-22 03:50 | ED ORDER SUMMARY ---
..... Patient: KATE TANNER OrderSheet [facility] VisitID: [id number] [place] [address] 36y, F Registration Date/Time: 09/22/2016 ORDER SHEET Weight: 72.5 kg (stated) Allergies: Ibuprofen GENERAL ORDERS: Chest 1V Urgent (02:09/22/2016 Kamilla IVERSON) (Ack 2:28 CHagerty ER [employer] Sales Consultant) (3:01 Kinza) Stitch Cleaner (Continuous) (02:09/22/2016 Kamilla IVERSON) (Ack 2:31 JQuivey R.N.) (2:44 CFalkner R.N.) CBC w Diff Urgent (02:09/22/2016 Kamilla IVERSON) (Ack 2:28 Valeria ER [employer] Sales Consultant) (2:41 CFalkner R.N.) BMP Urgent (02:09/22/2016 Kamilla IVERSON) (Ack 2:28 Valeria ER [employer] Sales Consultant) (2:41 CFalkner R.N.) (Cancelled: Other3:01 Kamilla IVERSON) Oxygen (2 L/min) (NC) (02:25 09/22/2016 Kamilla IVERSON) (2:31 JQuivey R.N.) CMP Urgent (03:02 09/22/2016 Kamilla IVERSON) (Ack 3:04 CHagmarija ER [employer] Sales Consultant) (3:05 CHagerty ER [employer] Sales Consultant) Amylase Urgent (03:02 09/22/2016 Kamilla IVERSON) (Ack 3:04 CHagmarija ER [employer] Sales Consultant) (3:05 CHagerty ER [employer] Sales Consultant) Lipase Urgent (03:02 09/22/2016 Kamilla IVERSON) (Ack 3:04 CHagerty ER [employer] Sales Consultant) (3:05 CHagerty ER [employer] Sales Consultant) UA-Culture if indicated Urgent (03:02 09/22/2016 Kamilla IVERSON) (Ack 3:04 CHagmarija ER [employer] Sales Consultant) (3:34 JQuivey R.N.) Urine Urgent (03:02 09/22/2016 Kamilla IVERSON) (Ack 3:04 CHagmarija ER [employer] Sales Consultant) (3:34 JQuivey R.N.) Acetone, Serum Urgent (03:02 09/22/2016 Kamilla IVERSON) (Ack 3:04 CHagerty ER [employer] Sales Consultant) (3:05 CHagerty ER [employer] Sales Consultant) ABG (G) Urgent (03:02 09/22/2016 Kamilla IVERSON) (Ack 3:04 CHagmarija ER [employer] Sales Consultant) (3:44 JQuivey R.N.) POC Glucose (Q 30 minutes) (03:14 09/22/2016 Kamilla IVERSON) (Ack 3:44 JQuivey R.N.) MEDICATION ORDERS: DuoNeb Neb Tx 1 unit dose (NOW) (01:55 09/22/2016 JQuivey R.N. per protocol) (1:56 JQuivey R.N.) Albuterol Neb Tx 1 unit dose (NOW) (02:24 09/22/2016 Kamilla IVERSON) (Ack 2:28 CHagerty ER [employer] Sales Consultant) (2:32 JQuivey R.N.) IV FLUIDS: IV Saline Lock (02:25 09/22/2016 Kamilla IVERSON) (2:31 JQuivey R.N.) IV NS : initial bolus 1000 mL (1000 mL/hr), then 125 mL/hr for 4h (NOW); Urgent (03:02 09/22/2016 Kamilla IVERSON) (Ack 3:19 JQuivey R.N.) (3:34 JQuivey R.N.) Insulin Reg IV 5 units (HIGH ALERT MEDICATION, NOW) (03:14 09/22/2016 Kamilla IVERSON) (Ack 3:19 JQuivey R.N.) (3:34 JQuivey R.N.) Insulin Reg IV 5 units (NOW) (04:15 09/22/2016 JQuivey R.N. verbal order read back to Kamilla IVERSON) (Ack 4:16 JQuivey R.N.) (4:21 JQuivey R.N.) ORDER SHEET NOTES: [Electronically signed by Alok Alfaro R.N. (06:02 09/22/2016)] [Electronically signed by Fermín Ruiz MD (11:25 09/24/2016)] [Electronically locked/signed by Alok Alfaro R.N. (06:02 09/22/2016)]
--- NOTE | 2016-09-22 06:01 | History & Physical Report ---
Information Source Information Source: Self, Child Reliability: Fair History Chief Complaint Shortness of breath History of Present Illness Patient is a 36-year-old female with a past history of asthma and diabetes type 2. Patient is presenting with acute shortness of breath. Patient claims that she had been in regular state of health for the past couple of weeks. Patient noticed that she had exacerbations morning that was very difficult to breathe. Patient at this time attempted to take her asthma medication however patient was having continual difficulty breathing despite taking as medication. Patient does not take her medication regularly and only takes it at times of exacerbation. In the past this happened twice before in that she was admitted for asthma exacerbation each time both were due to not being compliant with medication. In the first admission 2015 at [facility] patient was actually intubated for this exact problem. Patient at this time is not severe enough that she requires any sort of accessory breathing treatment except for nasal cannula. Additionally upon patient arriving to the hospital patient's blood sugars were found to be at 523. Patient claims this is secondary to multiple missed doses of metformin. Patient claims that she is not regular with her medication and that she has been continuing with a nondiabetic diet off the medication and without checking her blood sugars. Patient was urged that these problems are severe enough to warrant future debilitation and that she be sure to monitor her health better. Patient History 1. Asthma attack 2. Diabetes mellitus with hyperglycemia 3. Hypoxia Social History Patient currently lives with her and daughter. She is considered single. She currently does not work. Patient does not use any tobacco alcohol or illicit substances. Patient drinks 1 cup of coffee a day. Family History Family history was reviewed; no changes noted. Advance Directive Durable POA-Healthcare Medications and Allergies Medications Home Medications Albuterol breathing treatment Metformin 1000 mg bid Current Medications Sig/Katrina Start time Last Medication Dose Route Stop Time Status Admin Prednisone 20 MG DAILY 09/22 899 UNV PO Insulin Human Lispro See Dose ACHS 09/22 0730 UNi Insts (1) SC Albuterol/Ipratropium 3 ML RTQ6H PRN 09/22 599 UNV IN Insulin Human Regular 10 UNITS ONCE 09/22 599 UNV SC Pantoprazole Sodium 40 MG DAILY@09/22 UNV Sesquihydrate PO Sodium Chloride 1,000 ML ASDIRECTED 09/22 599 UNV IV Dose Instructions: (1)Insulin Human Lispro: LOW DOSE: ACCUCHECK AND SLIDING SCALE >>To change sliding scale DISCONTINUE this order and enter a NEW order. Thanks< Allergies Coded Allergies: Ibuprofen (Intermediate, Shortness of breath 01/27/16) NSAIDs (Intermediate, Shortness of breath 01/27/16) Review of Systems Constitutional Malaise. Denies: Fever, Chills, Sweats, Weakness, Other. Eyes Denies: Pain, Vision Change, Conjunctival Inflammation, Eyelid Inflammation, Redness, Other. ENT Denies: Ear Pain, Ear Discharge, Nose Pain, Nasal Discharge, Nasal Congestion, Mouth Pain, Mouth Swelling, Throat Pain, Throat Swelling, Other. Respiratory Cough, SOB w/exertion, Wheezing. Denies: Dry, Hemoptysis, Pleuritic Pain, Sputum, Other. Cardiovascular Denies: Chest Pain, Palpitations, Orthopnea, PND, Edema, Light-headedness, Other. Gastrointestinal Denies: Nausea, Vomiting, Abdominal Pain, Diarrhea, Constipation, Melena, Hematochezia, Other. Genitourinary Denies: Dysuria, Frequency, Incontinence, Hematuria, Retention, Other. Musculoskeletal Denies: Neck Pain, Shoulder Pain, Arm Pain, Back Pain, Hand Pain, Leg Pain, Foot Pain, Other. Skin Denies: Rash, Lesions, Jaundice, Bruising, Other. Neurological Denies: Weakness, Numbness, Incoordination, Change in speech, Confusion, Seizures, Other. Physical Exam Vital Signs / I&Os Vital Signs Date Time Temp Pulse Resp B/P Pulse O2 O2 Flow FiO2 Ox Delivery Rate 09/22 0317 4.0 09/22 0234 6.0 09/22 0154 6.0 General Appearance Alert, Oriented X3, Cooperative, No acute distress HEENT Atraumatic, PERRLA, Moist mucous membranes Lungs - bilateral wheezes - no ronchi or crackles Neck No masses, No thyromegaly Cardiovascular Regular rate and rhythm, Normal S1 and S2, No murmurs, gallops, rubs Abdomen Soft, No tenderness, No guarding Extremities No clubbing, No edema, Normal pulses, No tenderness Skin No Breakdown, No Significant Lesions Neurological Normal speech, Normal tone, Cranial nerves intact, No lateralizing signs Psych/Mental Status Mood normal Assessment and Plan Problem List 1. Asthma attack Plan Patient was seen to be 88% maximal despite accessory oxygenation Patient was treated with albuterol and nasal cannula Patient upon examination was seen to be doing well however she had faint wheezes bilaterally We'll continue with regularly scheduled albuterol treatments Provide small dose of prednisone 20 mg daily We'll continue monitor patient's oxygen saturation and wean off oxygen as tolerated We'll look to discharge the patient once symptoms resolve 2. Hypoxia Plan Patient had hypoxia upon arrival Patient's breathing improved once she received breathing treatments Patient is currently saturating 98% on 2 L nasal cannula We'll wean off of nasal cannula as tolerated 3. Diabetes mellitus with hyperglycemia Plan Patient has an established history of diabetes mellitus type 2 Patient takes metformin 1000 mg daily Patient has missed her past couple of doses of metformin Patient also does not regularly check her blood sugars Patient was urged that these things need to be managed carefully otherwise she could get very sick quickly Currently will treat the patient with insulin to get her levels down to subcutaneous 100 Then we'll look to start sliding scale coverage Once blood sugars are relatively well controlled will restart metformin and discharge patient
[2016-09-22 06:13] VITALS: BP 114/66
--- NOTE | 2016-09-22 06:47 | DIAGNOSTIC IMAGING REPORT ---
PROCEDURE: XR CHEST 1 VIEW INDICATION: ASTHMA TECHNIQUE: Portable AP view 02:58 a.m. COMPARISON: Chest x-ray 05/29/2016. FINDINGS: Lungs are clear. Heart and mediastinum are normal. Thorax is normal. No significant interval change. IMPRESSION: 1. Negative chest.
--- NOTE | 2016-09-22 07:27 | Progress Note ---
Subjective General Note Date: 09/22/2016 Admission Date: 05/25/2016 Hospital Day: day 1 PCP: Chan Germain Status: Observation acute care Room: she'll wanted Admission History 36-year-old female with a past history of asthma and diabetes type 2 who presented to the [facility] ED with shortness of breath. On the ED she was found to be hypoxic on room air. Patient was started on nasal cannula O2 supplementation. Patient was given [facility]Medrol in the [facility] ED and in addition to albuterol nebulized. Patient is admitted with asthma exacerbation along with hypoxia. Also noted was patient's blood sugar at 536. Patient with known history of diabetes type 2 had been locking on her normal diabetic regimen. Patient normally takes only metformin as a single agent for her diabetes management. Patient has previously on Lantus but this is been discontinued by her primary care provider. Patient was admitted under acute care observation by hospitalist service Dr. Martel. Patient will be observed and followed over the day. Patient will be on appropriate airway control. The nasal cannula oxygen support will be titrated off. Continue the Solu-Medrol 40 mg 2 today. Followed by oral prednisone. Patient will be on low-dose sliding scale. Patient will be on education parameters for diabetes in the care of her asthma. subjective She reports that she is feeling better. Physical Exam Vital Signs / I&Os Vital Signs Date Time Temp Pulse Resp B/P Pulse O2 O2 Flow FiO2 Ox Delivery Rate 09/22 0647 Nasal 2.0 Cannula 09/22 0613 97.9 107 15 114/66 96 Nasal 2.0 Cannula 09/22 0317 4.0 09/22 0234 6.0 09/22 0154 6.0 General Appearance Oriented X3, No acute distress Lungs decrease air movement and bilateral lungs, and expiratory wheeze. currently on oxygen nasal cannula 2 L Cardiovascular Normal S1 and S2, No murmurs, gallops, rubs, tachycardia Abdomen Soft LAB Results Laboratory Tests 09/22 09/22 09/22 0235 0235 0302 Blood Gas Sample Site LR Total CO2 (24.0 - 30.0 mmol/L) 24.1 ABG pH (7.35 - 7.45) 7.42 ABG pCO2 at Pt Temp (35 - 45 mmHg) 35.7 ABG pO2 at Pt Temp (80.0 - 100.0 mmHg) 86.5 ABG HCO3 (20.0 - 26.0 mmol/L) 23.0 ABG O2 Sat Calc/Kelly (95.1 - 100.0 %) 97.5 ABG Base Excess (-6.0 - -6.0 mmol/L) -1.3 ABG Reduced Hgb (%) 2.5 ABG Carboxyhemoglobin (0.5 - 1.5 %) 1.5 ABG Methemoglobin (0.4 - 1.5 %) 0.1 Prasanna Test YES Other Total Hgb (12.0 - 16.0 g/dL) 10.0 A-a O2 Gradient (7.0 - 14.0 mmHg) 130.3 Hgb O2 Saturation (95.0 - 100.0 %) 95.9 Respiration Rate (/MIN) 20 O2 Liters/Min (0 - 20 L/MIN) 4 Vent Mode NC FiO2 (20 - 101 %) 36 Chemistry Plasma Sodium (136 - 145 mmol/L) 134 134 Plasma Potassium (3.5 - 5.1 mmol/L) 3.3 3.2 Plasma Chloride (98 - 107 mmol/L) 97 98 CO2 (Enzymatic) (21 - 32 mmol/L) 22 23 BUN (7 - 18 mg/dL) 16 16 Creatinine (0.6 - 1.3 mg/dL) 0.8 0.8 Est GFR ( Amer) (mL/min) >60 >60 Est GFR (Non-Af Amer) (mL/min) >60 >60 Glucose (70 - 110 mg/dL) 583 593 Plasma Calcium (8.5 - 10.1 mg/dL) 9.0 8.9 Total Bilirubin (0.0 - 1.0 mg/dL) 0.2 AST (15 - 37 U/L) 11 ALT (12 - 78 U/L) 19 Alkaline Phosphatase (46 - 116 U/L) 145 Total Protein (6.4 - 8.2 g/dL) 7.3 Albumin (3.3 - 5.0 g/dL) 3.4 Amylase (25 - 115 U/L) 55 Lipase (73 - 393 U/L) 192 Hematology WBC (4.5 - 11.5 K/uL) 9.2 RBC (4.00 - 5.20 M/uL) 4.62 Hgb (12.0 - 16.0 gm/dL) 9.9 Hct (36.0 - 46.0 %) 31.7 MCV (80 - 100 fL) 69 MCH (26 - 34 pg) 22 RDW (11.6 - 14.8 %) 14.5 Neut % (Auto) (50 - 75 %) 76.7 Lymph % (Auto) (25 - 40 %) 16.8 [place] % (Auto) (3 - 14 %) 4.6 Eos % (Auto) (0 - 4 %) 1.7 Baso % (Auto) (0 - 2 %) 0.2 Plt Count, EDTA (150 - 400 K/uL) 218 PUBS MCHC (31 - 37 g/dL) 31 Toxicology Acetone, Qual (NEGATIVE) POSITIVE 09/22 09/22 0328 0328 Urines Urine Color YELLOW Urine Appearance CLEAR Urine pH (5.0 - 8.0) 5.5 Ur Specific [place] (1.010 - 1.030) <= 1.005 Urine Protein (NEGATIVE) NEGATIVE Urine Ketones (NEGATIVE) 1+ Urine Blood (NEGATIVE) 2+ Urine Nitrite (NEGATIVE) NEGATIVE Urine Bilirubin (NEGATIVE) NEGATIVE Urine Urobilinogen (0.2 - 1.0 EU/dL) 0.2 Ur Leukocyte Esterase (NEGATIVE) NEGATIVE Urine RBC (0 - 1 rbc/hpf) 3-5 Urine WBC (0 - 1 wbc/hpf) 0-1 Ur Epithelial Cells (0 - 5 EPI/hpf) 1-3 Urine Bacteria (NONE SEEN) NONE SEEN Urine Glucose (NEGATIVE) 3+ Urine Test NEGATIVE Urine Comment CULT NOT INDICATED Assessment and Plan Problem List 1. Asthma attack Plan Titrated oxygen support to maintain saturations above 92%. Continue Solu-Medrol 40 mg twice a day for today only, then reduce to a 20 mg prednisone tomorrow. Albuterol/ipratropium nebulized every 6 hours. Albuterol inhaled every 4 hours as needed for shortness of breath. Monitor airway during the day. Maintaining adequate hydration. 2. Diabetes mellitus with hyperglycemia Plan Maintained on a low-dose sliding scale insulin coverage. Hemoglobin A1c. Start back on metformin thousand milligrams daily Normal saline at 1.5 times maintenance. Replacement potassium. Recheck potassium this evening. 3. Hypoxia Plan Maintain O2 support. Titrate to keep the sats above 92%. 4. Hypokalemia Plan Replace potassium. Repeat lab this evening. Current status: Fair Anticipated discharge date: Within 24-36 hours Anticipated discharge placement: Home Patient care time: Time spent in chart review, patient interview, physical exam, CPOE, and care documentation: 35 minutes Visit to patient today: 2 Complexity of care: mild
[2016-09-22 10:36] VITALS: BP 111/64
[2016-09-22 14:26] VITALS: BP 108/67
[2016-09-22] MEDS ORDERED: ALBUTEROL HFA60 DOSE IN (15:43)
[2016-09-22] MEDS ORDERED: CLARITIN10 MG PO (15:44)
[2016-09-22] MEDS ORDERED: METFORMIN HCL500 MG PO (15:44)
[2016-09-22 18:50] VITALS: BP 118/63
[2016-09-22 22:15] VITALS: BP 120/72
[2016-09-23 02:35] VITALS: BP 106/63
[2016-09-23 07:33] VITALS: BP 116/81
[2016-09-23 10:39] VITALS: BP 120/71
--- NOTE | 2016-09-23 13:56 | Progress Note ---
Subjective General Patient seen and examined. No acute events overnight. Patient's blood sugars are still very poorly controlled. Patient is ranging anywhere from 250 to low 300s. So far we have DC'd the prednisone having sure the patient is only consuming a very low carb diet, and we will adjust the insulin dosages. Otherwise patient has no problems breathing and is otherwise doing well Constitutional Denies: Fever, Chills, Sweats, Weakness, Malaise, Other. Eyes Denies: Pain, Vision Change, Conjunctival Inflammation, Eyelid Inflammation, Redness, Other. ENT Denies: Ear Pain, Ear Discharge, Nose Pain, Nasal Discharge, Nasal Congestion, Mouth Pain, Mouth Swelling, Throat Pain, Throat Swelling, Other. Respiratory Wheezing. Denies: Cough, Dry, SOB w/exertion, Hemoptysis, Pleuritic Pain, Sputum, Other. Cardiovascular Denies: Chest Pain, Palpitations, Orthopnea, PND, Edema, Light-headedness, Other. Gastrointestinal Denies: Nausea, Vomiting, Abdominal Pain, Diarrhea, Constipation, Melena, Hematochezia, Other. Genitourinary Denies: Dysuria, Frequency, Incontinence, Hematuria, Retention, Other. Musculoskeletal Denies: Neck Pain, Shoulder Pain, Arm Pain, Back Pain, Hand Pain, Leg Pain, Foot Pain, Other. Skin Denies: Rash, Lesions, Jaundice, Bruising, Other. Neurological Denies: Weakness, Numbness, Incoordination, Change in speech, Confusion, Seizures, Other. Physical Exam Vital Signs / I&Os Vital Signs Date Time Temp Pulse Resp B/P Pulse O2 O2 Flow FiO2 Ox Delivery Rate 09/23 1039 97.9 91 18 120/71 95 Room Air 09/23 0836 1.0 09/23 08 Nasal 2.0 Cannula 09/23 0733 98.6 72 18 116/81 97 Nasal 2.0 Cannula 09/23 0235 98.2 86 16 106/63 95 Nasal 2.0 Cannula 09/22 2215 98.2 92 16 120/72 96 Nasal 2.0 Cannula 09/22 2013 Nasal 2.0 Cannula 09/22 1916 2.0 09/22 1850 98.8 105 16 118/63 89 Room Air 09/22 1426 97.5 94 16 108/67 96 Nasal 2.0 Cannula I&O 09/22 0800 09/22 1600 09/23 0000 Intake Total 600 950 Output Total 1100 2300 1550 Balance -1100 -1700 -600 General Appearance Alert, Oriented X3, Cooperative HEENT Atraumatic, Moist mucous membranes Lungs Clear to auscultation Neck No masses, No thyromegaly Cardiovascular Regular rate and rhythm, Normal S1 and S2, No murmurs, gallops, rubs Abdomen Soft, No tenderness, No masses Extremities No edema, No tenderness Skin No Breakdown Neurological Normal speech, Sensation intact, Reflexes 2+ and equal, No lateralizing signs Psych/Mental Status Mood normal LAB Results Laboratory Tests 09/22 09/22 09/22 09/23 1550 1550 1550 0520 Chemistry Plasma Sodium (136 - 145 mmol/L) 135 141 Plasma Potassium (3.5 - 5.1 mmol/L) 4.3 4.3 4.4 Plasma Chloride (98 - 107 mmol/L) 100 106 CO2 (Enzymatic) (21 - 32 mmol/L) 21 22 BUN (7 - 18 mg/dL) 14 13 Creatinine (0.6 - 1.3 mg/dL) 0.6 0.5 Est GFR ( Amer) (mL/min) >60 >60 Est GFR (Non-Af Amer) (mL/min) >60 >60 Glucose (70 - 110 mg/dL) 277 277 Hemoglobin A1c % (4.5 - 6.2 %) 13.9 Plasma Calcium (8.5 - 10.1 mg/dL) 9.0 8.4 Plasma Magnesium (1.8 - 2.4 mg/dL) 1.7 Total Bilirubin (0.0 - 1.0 mg/dL) 0.2 AST (15 - 37 U/L) 10 ALT (12 - 78 U/L) 18 Alkaline Phosphatase (46 - 116 U/L) 86 Total Protein (6.4 - 8.2 g/dL) 6.3 Albumin (3.3 - 5.0 g/dL) 3.2 Hematology WBC (4.5 - 11.5 K/uL) 15.5 RBC (4.00 - 5.20 M/uL) 4.52 Hgb (12.0 - 16.0 gm/dL) 9.8 Hct (36.0 - 46.0 %) 30.8 MCV (80 - 100 fL) 68 MCH (26 - 34 pg) 22 RDW (11.6 - 14.8 %) 14.5 Neut % (Auto) (50 - 75 %) 86.2 Lymph % (Auto) (25 - 40 %) 11.9 [place] % (Auto) (3 - 14 %) 1.8 Eos % (Auto) (0 - 4 %) 0 Baso % (Auto) (0 - 2 %) 0.1 Plt Count, EDTA (150 - 400 K/uL) 213 RBC Morphology (73468 A) 1+ HYPOCHROMIA PUBS MCHC (31 - 37 g/dL) 32 Assessment and Plan Problem List 1. Diabetes mellitus with hyperglycemia Plan Patient's blood sugars are still very uncontrolled Currently patient will be on a very low carb diet We'll continue with metformin 1000 mg twice a day Currently patient is on Lantus 10 units every morning We'll continue with that dosage for the time being We'll continue to trend blood sugars 2. Asthma attack Plan Patient has a history of asthma exacerbation Secondary to missed albuterol dosages Currently patient had wheezes in the a.m. but they have resolved since then We'll continue with scheduled albuterol treatments as needed 3. Hypoxia Plan Completely resolved
[2016-09-23 14:19] VITALS: BP 114/59
[2016-09-23 18:39] VITALS: BP 112/64
[2016-09-23 23:16] VITALS: BP 131/82
[2016-09-24] VITALS (7 sets, daily range): BP systolic 118–134; BP diastolic 72–95
--- NOTE | 2016-09-24 11:26 | ED MAR SUMMARY ---
..... Medication Administration Record [facility] [address] [place] [address] Patient: KATE TANNER Visit ID: [id number] 36y, F Weight: 72.5 kg Height/Length: 63 in BMI: 28.3 ALLERGIES: Ibuprofen Given 01:44 09/22/2016 Alok Alfaro R.N. Medication Administered: DUONEB [NEB TX] (IPRATROPIUM-ALBUTEROL), Dose: 1 unit dose Neb TX. Medication Ordered: DuoNeb Neb Tx 1 unit dose (NOW). Given 02:32 09/22/2016 Alok Alfaro R.N. Medication Administered: ALBUTEROL [NEB TX], Dose: 1 unit dose Neb TX. Medication Ordered: Albuterol Neb Tx 1 unit dose (NOW). Start 03:29 09/22/2016 Alok Alfaro R.N. Medication Administered: IV NS (SALINE), Dose: IV Fluids over 1 hour(s), Rate: 1000 mL/hr, Dispensed: 1000 mL bag, Site: #1 left AC. Medication Ordered: IV NS : initial bolus 1000 mL (1000 mL/hr), then 125 mL/hr for 4h (NOW); Urgent. Given 03:32 09/22/2016 Alok Alfaro R.NVera Medication Administered: INSULIN REG [IVP], Dose: 5 unit IVP over 1 minute(s), Site: #1 left AC. Medication Ordered: Insulin Reg IV 5 units (HIGH ALERT MEDICATION, NOW). Given 04:21 09/22/2016 Alok Alfaro RVeraNVera Medication Administered: INSULIN REG [IVP], Dose: 5 unit IVP over 1 minute(s), Site: #1 left AC. Medication Ordered: Insulin Reg IV 5 units (NOW).
--- NOTE | 2016-09-24 11:26 | ED DISCHARGE INSTRUCTIONS ---
Patient: HÉCTOR HARKINSKATE CAICEDO General Instructions [facility] VisitID: [id number] [address] [place] [address] 36y, F Registration Date/Time: 09/22/2016 Asthma. Diabetes with hyperglycemia. Hypoxia. ketotic hyperosmolar state. (Electronically signed by Fermín Ruiz MD 09/24/2016 11:25)
--- NOTE | 2016-09-24 11:26 | ED DISCHARGE INSTRUCTIONS ---
Patient: HÉCTOR HARKINSKATE CAICEDO General Instructions [facility] VisitID: [id number] [address] [place] [address] 36y, F Registration Date/Time: 09/22/2016 Asthma. Diabetes with hyperglycemia. Hypoxia. ketotic hyperosmolar state. (Electronically signed by Fermín Ruiz MD 09/24/2016 11:25)
--- NOTE | 2016-09-24 11:26 | ED MED RECONCILIATION SUMMARY ---
Patient: KATE TANNER Medication Reconciliation Report [facility] VisitID: [id number] [address] [place] [address] 36y, F Registration Date/Time: 09/22/2016 Weight: 72.5 kg Height/Length: 63 in. BMI: 28.3 ALLERGIES: Ibuprofen The patient's Home Medications are listed below: THE FOLLOWING MEDICATIONS NEED TO BE RECONCILED: Albuterol Sulfate Inhalation 2 puffs, PRN MetFORMIN HCl Oral (1000 mg) 1 tablet, 2x a day The source(s) of the original Home Medication information: patient's family member patient The following Medications were given to the patient in the Emergency Department: Duoneb [Neb Tx] Neb TX 1 unit dose, administered: 09/22/2016 1:44:00 AM Albuterol [Neb Tx] Neb TX 1 unit dose, administered: 09/22/2016 2:32:00 AM IV NS IV Fluids bolus 0, then 1000 mL/hr, administered: 09/22/2016 3:29:00 AM Insulin REG [IVP] IVP 5 unit, administered: 09/22/2016 3:32:00 AM Insulin REG [IVP] IVP 5 unit, administered: 09/22/2016 4:21:00 AM The following Medications were prescribed to the patient: None.
--- NOTE | 2016-09-24 11:26 | ED MED RECONCILIATION SUMMARY ---
Patient: KATE TANNER Medication Reconciliation Report [facility] VisitID: [id number] [address] [place] [address] 36y, F Registration Date/Time: 09/22/2016 Weight: 72.5 kg Height/Length: 63 in. BMI: 28.3 ALLERGIES: Ibuprofen The patient's Home Medications are listed below: THE FOLLOWING MEDICATIONS NEED TO BE RECONCILED: Albuterol Sulfate Inhalation 2 puffs, PRN MetFORMIN HCl Oral (1000 mg) 1 tablet, 2x a day The source(s) of the original Home Medication information: patient's family member patient The following Medications were given to the patient in the Emergency Department: Duoneb [Neb Tx] Neb TX 1 unit dose, administered: 09/22/2016 1:44:00 AM Albuterol [Neb Tx] Neb TX 1 unit dose, administered: 09/22/2016 2:32:00 AM IV NS IV Fluids bolus 0, then 1000 mL/hr, administered: 09/22/2016 3:29:00 AM Insulin REG [IVP] IVP 5 unit, administered: 09/22/2016 3:32:00 AM Insulin REG [IVP] IVP 5 unit, administered: 09/22/2016 4:21:00 AM The following Medications were prescribed to the patient: None.
--- NOTE | 2016-09-24 11:26 | ED MAR SUMMARY ---
..... Medication Administration Record [facility] [address] [place] [address] Patient: KATE TANNER Visit ID: [id number] 36y, F Weight: 72.5 kg Height/Length: 63 in BMI: 28.3 ALLERGIES: Ibuprofen Given 01:44 09/22/2016 Alok Alfaro R.N. Medication Administered: DUONEB [NEB TX] (IPRATROPIUM-ALBUTEROL), Dose: 1 unit dose Neb TX. Medication Ordered: DuoNeb Neb Tx 1 unit dose (NOW). Given 02:32 09/22/2016 Alok Alfaro R.N. Medication Administered: ALBUTEROL [NEB TX], Dose: 1 unit dose Neb TX. Medication Ordered: Albuterol Neb Tx 1 unit dose (NOW). Start 03:29 09/22/2016 Alok Alfaro R.N. Medication Administered: IV NS (SALINE), Dose: IV Fluids over 1 hour(s), Rate: 1000 mL/hr, Dispensed: 1000 mL bag, Site: #1 left AC. Medication Ordered: IV NS : initial bolus 1000 mL (1000 mL/hr), then 125 mL/hr for 4h (NOW); Urgent. Given 03:32 09/22/2016 Alok Alfaro R.NVera Medication Administered: INSULIN REG [IVP], Dose: 5 unit IVP over 1 minute(s), Site: #1 left AC. Medication Ordered: Insulin Reg IV 5 units (HIGH ALERT MEDICATION, NOW). Given 04:21 09/22/2016 Alok Alfaro RVeraNVera Medication Administered: INSULIN REG [IVP], Dose: 5 unit IVP over 1 minute(s), Site: #1 left AC. Medication Ordered: Insulin Reg IV 5 units (NOW).
--- NOTE | 2016-09-24 16:07 | Progress Note ---
Subjective General Patient seen and examined. Patient upon examination this morning was seen to be eating As well as drinking Erin iced tea. This is concerning given the fact that both eyes in the nighttime physician Yahir over what the patient should be evening and what she should not be eating. He left in place and what should be done and made it clear that she understands to which she claimed that he did. However 11 this morning she deliberately was not consuming what we originally planned the day prior. Again patient's diet was explained to her what the patient should be ordered for breakfast. Patient was additionally told that people not be making the decisions for her and that she should be treated best decisions for herself given the lack of oversight as an outpatient. Patient claims that she understood we will adjust her insulin dosages Constitutional Denies: Fever, Chills, Sweats, Weakness, Malaise, Other. Eyes Denies: Pain, Vision Change, Conjunctival Inflammation, Eyelid Inflammation, Redness, Other. Respiratory Denies: Cough, Dry, SOB w/exertion, Wheezing, Hemoptysis, Pleuritic Pain, Sputum , Other. Cardiovascular Denies: Chest Pain, Palpitations, Orthopnea, PND, Edema, Light-headedness, Other. Gastrointestinal Denies: Nausea, Vomiting, Abdominal Pain, Diarrhea, Constipation, Melena, Hematochezia, Other. Genitourinary Denies: Dysuria, Frequency, Incontinence, Hematuria, Retention, Other. Musculoskeletal Denies: Neck Pain, Shoulder Pain, Arm Pain, Back Pain, Hand Pain, Leg Pain, Foot Pain, Other. Skin Denies: Rash, Lesions, Jaundice, Bruising, Other. Neurological Denies: Weakness, Numbness, Incoordination, Change in speech, Confusion, Seizures, Other. Physical Exam Vital Signs / I&Os Vital Signs Date Time Temp Pulse Resp B/P Pulse O2 O2 Flow FiO2 Ox Delivery Rate 09/25 1113 98.2 81 18 135/90 96 Room Air 0.0 09/25 0731 98.6 77 18 124/85 96 Room Air 0.0 09/25 0251 98.6 83 18 122/80 96 Room Air 09/24 2208 98.4 77 18 118/81 96 Room Air 09/24 1859 126/72 09/24 1805 98.2 79 18 132/95 96 Room Air 09/24 1605 Room Air 0.0 I&O 09/24 0800 06/26 1600 09/25 0000 Intake Total 2436 1040 2497 Output Total 900 1800 1000 Balance 1536 -760 1497 General Appearance Alert, Oriented X3, No acute distress HEENT Atraumatic, PERRLA, Moist mucous membranes Lungs Clear to auscultation, Normal air movement Neck Supple, No masses, No thyromegaly Cardiovascular Regular rate and rhythm, Normal S1 and S2, No murmurs, gallops, rubs Abdomen Normal bowel sounds, Soft, No masses Extremities No edema, Normal pulses, No tenderness Skin No Breakdown Neurological Normal speech, Normal tone, Cranial nerves intact, No lateralizing signs Psych/Mental Status Mood normal LAB Results Laboratory Tests 09/25 09/25 0500 0550 Chemistry Plasma Sodium (136 - 145 mmol/L) 141 Plasma Potassium (3.5 - 5.1 mmol/L) 3.6 Plasma Chloride (98 - 107 mmol/L) 108 CO2 (Enzymatic) (21 - 32 mmol/L) 26 BUN (7 - 18 mg/dL) 10 Creatinine (0.6 - 1.3 mg/dL) 0.4 Est GFR ( Amer) (mL/min) >60 Est GFR (Non-Af Amer) (mL/min) >60 Glucose (70 - 110 mg/dL) 103 Plasma Calcium (8.5 - 10.1 mg/dL) 7.9 Iron (35 - 150 ug/dL) 13 TIBC (260 - 445 ug/dL) 379 Iron Saturation (15 - 50 %) 3 Total Bilirubin (0.0 - 1.0 mg/dL) 0.4 AST (15 - 37 U/L) 24 ALT (12 - 78 U/L) 33 Alkaline Phosphatase (46 - 116 U/L) 62 Total Protein (6.4 - 8.2 g/dL) 5.8 Albumin (3.3 - 5.0 g/dL) 2.9 Assessment and Plan Problem List 1. Asthma attack Plan Patient initially presented to the ER with shortness of breath. This was secondary to missed medications Patient's breathing has normalized when she was on scheduled albuterol We'll continue with albuterol twice a day as outpatient 2. Diabetes mellitus with hyperglycemia Plan Patient's blood sugars overnight were still very poorly controlled Once the patient was told me that she did not eat the appropriate diet [place] out for her. Patient was urged that she needs to adhere to her diabetic diet otherwise her blood sugars will remain high Patient's age. One before meals was 13 today, patient was explained that this blood sugar is extremely bad for her and that could lead to multiple health problems including blindness, renal failure, stroke and heart disease Patient was upset however she's claimed that she understood We'll continue to track blood sugars We'll reinforce information. Dietitian 3. Hypoxia Plan Resolved
[2016-09-25 02:51] VITALS: BP 122/80
[2016-09-25 07:31] VITALS: BP 124/85
[2016-09-25 11:13] VITALS: BP 135/90
[2016-09-25] MEDS ORDERED: ALBUTEROL HFA60 DOSE IN (11:47)
[2016-09-25] MEDS ORDERED: METFORMIN HCL500 MG PO (11:47)
[2016-09-25] MEDS ORDERED: LANTUS SOL100 UNITS/ SC (11:47)
[2016-09-25] MEDS ORDERED: glucometer (11:51)
[2016-09-25] MEDS ORDERED: [UNRECOGNIZED DRUG - OTHER] (11:51)
--- NOTE | 2016-09-25 11:54 | Provider's Discharge Care Plan ---
Problem, Goal, Plan Problem List 1. Asthma attack Instructions: - take inhaler twice a day whether you have symptoms or not 2. Diabetes mellitus with hyperglycemia Instructions: - take insulin and metformin as prescribed - adhere to the diet we laid out for you - follow up with your doctor at [facility] and bring your discharge paperwork with you
--- NOTE | 2016-09-25 11:54 | Provider's Discharge Care Plan ---
Problem, Goal, Plan Problem List 1. Asthma attack Instructions: - take inhaler twice a day whether you have symptoms or not 2. Diabetes mellitus with hyperglycemia Instructions: - take insulin and metformin as prescribed - adhere to the diet we laid out for you - follow up with your doctor at [facility] [place] and bring your discharge paperwork with you
--- NOTE | 2016-09-25 15:59 | Discharge Summary ---
Discharge Summary Report Admit Date 09/22/16 Discharge Date 09/25/16 Admission Diagnosis Asthma attack and hyperglycemia Discharge Diagnosis Asthma exacerbation and uncontrolled diabetes Brief History Please refer to admission H&P Hospital Course Patient was admitted with asthma exacerbation and hyperglycemia. Patient's blood sugars were in the 500 without any evidence of ketone formation. Patient' s asthma was treated with DuoNeb nebs every 4 hours when necessary as well as steroids by mouth. Patient additionally was initially started on when necessary insulin to reduce her sugars to 200s then patient was placed back on metformin. Patient was told what diet she should be eating at home. There was difficulty in Q medication with the patient and she did not fully understand, as well as not understand the roles of the various people in the hospital. This may have led to possible confusion and the assumption that all her meals would be catered toward her diabetic needs. He was explained to the patient that this is not the case. And that she should make these decisions in the future by herself in order to combat her continually high blood sugars. Patient was eventually prescribed Lantus in order to combat her continually high sugars. Patient responded well as well and her blood sugars remained under control. Patient was carefully explained the ins and outs of what she should be eating, as well as the follow-up she needs for both the diabetes and asthma. Patient was given insulin for injection, glucometer, testing strips and prescription for albuterol. Patient will be discharged home she will follow up with her PMD. General Appearance Alert, Oriented X3, No acute distress HEENT PERRLA, Mucous membran moist/pink Lungs Normal air movement Cardiovascular Normal S1, Normal S2, No murmurs, Gallops, Rubs Abdomen Soft, No tenderness, No masses Skin No Breakdown, No Significant Lesions Neurological Normal speech, Normal tone, Sensation intact, Cranial nerves 3-12 NL Lab/Imaging Laboratory Tests 09/25 09/25 0500 0550 Chemistry Plasma Sodium (136 - 145 mmol/L) 141 Plasma Potassium (3.5 - 5.1 mmol/L) 3.6 Plasma Chloride (98 - 107 mmol/L) 108 CO2 (Enzymatic) (21 - 32 mmol/L) 26 BUN (7 - 18 mg/dL) 10 Creatinine (0.6 - 1.3 mg/dL) 0.4 Est GFR ( Amer) (mL/min) >60 Est GFR (Non-Af Amer) (mL/min) >60 Glucose (70 - 110 mg/dL) 103 Plasma Calcium (8.5 - 10.1 mg/dL) 7.9 Iron (35 - 150 ug/dL) 13 TIBC (260 - 445 ug/dL) 379 Iron Saturation (15 - 50 %) 3 Total Bilirubin (0.0 - 1.0 mg/dL) 0.4 AST (15 - 37 U/L) 24 ALT (12 - 78 U/L) 33 Alkaline Phosphatase (46 - 116 U/L) 62 Total Protein (6.4 - 8.2 g/dL) 5.8 Albumin (3.3 - 5.0 g/dL) 2.9 Discharge Instructions/Meds Take medications as prescribed Follow with your diabetic diet Follow up with your PMD
== END 2016-09-25 12:30 | disposition home or self-care (01) | DRG 141 ==
LOC: ED SRH 01:45 → TRANS SRH 03:54 → ACUTE2 SRH 03:54
PROVIDERS: ADMIT Internal Medicine
DX: J45.901 Unspecified asthma with (acute) exacerbation (principal); R09.02 Hypoxemia; T48.6X6A Underdosing of antiasthmatics, initial encounter; E11.65 Type 2 diabetes mellitus with hyperglycemia; T38.3X6A Underdosing of insulin and oral hypoglycemic [antidiabetic] drugs, initial encounter; Z91.128 Patient's intentional underdosing of medication regimen for other reason; E87.6 Hypokalemia; Z91.14 Patient's other noncompliance with medication regimen; Z91.11 Patient's noncompliance with dietary regimen; Z79.84 Long term (current) use of oral hypoglycemic drugs
CPT/HCPCS: 90004; 90047; 90074; 90098; 90100; 90301; 91286; 92235; 92530; 92668; 92670; 92720; 92750; 93070; 95059